=== PATIENT | male | born 1990 | race Caucasian/White ===

== ENCOUNTER 2023-07-08 11:10 | Emergency (ER) | payer BC, SELFPAY ==
[2023-07-08 11:12] VITALS: BP 139/91
[2023-07-08 13:16] LABS: % Basophils 0.9 % (0-2); % Eosinophils 1.3 % (0-6); % Immature Granulocytes 0.2 % (0-0.5); % Lymphocytes 23.3 % (20.5-51.1); % Monocytes 9.3 % (1.7-9.3); Absolute Basophils 0.1 10^3/uL (0-0.2); Absolute Eosinophils 0.1 10^3/uL (0-0.7); Absolute Lymphocytes 1.3 10^3/uL (1.2-3.4); Absolute Monocytes 0.5 10^3/uL (0.1-0.6); Absolute Neutrophils 3.6 10^3/uL (1.4-6.5); Hematocrit 44.8 % (39.0-52.0); Hemoglobin 15.4 g/dL (13.0-18.0); Mean Corp Hgb Conc. 34.4 g/dL (33.0-37.0); Mean Corpuscular Hgb 27.3 pg (27.0-31.0); Mean Corpuscular Volume 79.3 fL (80.0-94.0); Nucleated Red Blood Cells % 0 % (-); Red Blood Cell Count 5.65 10^6/uL (4.70-6.10); Red Cell Dist. Width 12.7 % (11.5-14.5); White Blood Cell Count 5.5 10^3/uL (4.8-10.8)
[2023-07-08 13:57] LABS: Mean Platelet Volume 12.2 fL (7.4-10.4); Platelet Count 37 10^3/uL (130-400)
--- NOTE | 2023-07-08 14:47 | ED.GENMED ---
History of Present Illness
General
Chief Complaint: Fall
Source: patient
Exam Limitations: none
Time Seen by Provider: 07/08/23 11:46
Nursing documentation reviewed up to this point in time: agreed with
Travel History
Have you had any contact with someone who has COVID-19?: No
Do you have any symptoms of coronavirus? Fever > 100 degrees, chills, cough, shortness of breath, sore throat, loss of taste or smell, muscle aches, or headache?: No
History of Present Illness
History of Present Illness:
32-year-old male with past medical history of diabetes, ITP presenting to the emergency department today with concerns of fall this morning in the bathtub hitting his right side has noticed bruising on his right lateral chest wall he is concerned
that he does have a history of low platelets. Has not been seeing his doctor in the over the past year or so. Denies hitting his head no neck pain no numbness weakness no change in bowel movements or urination.
Past History
Past History
ED Past Medical History: IDDM and Other (Celiac, chronically low platelets)
ED Past Surgical History: Other (wisdom teeth)
Social History
Tobacco: Non-smoker
Alcohol: Occasional
Drug: None
Personal: Single
Living: with family
Employment: Employed
Family History
Family History: Diabetes
Review of Systems
Review of Systems
Allergies reviewed?: Yes
All Other Systems: ROS reviewed and negative except as documented in HPI and ROS
Phy Exam
Physical Exam
Physical Exam:
GENERAL: Alert , in no apparent distress
EYE: pupils equal and reactive
NECK: Supple, no significant adenopathy.
ENT: o/p clr, mmm.
CARDIAC: Regular rate and rhythm .
LUNGS: Clear breath sounds bilaterally, no acute respiratory distress, no wheezes/rales/rhonchi
ABDOMEN: Soft, without focal tenderness, no r/g, no cvat
NEUROLOGICAL: Alert and oriented, no focal neuro deficits
SKIN: Warm and dry, skin intact.
MUSCULOSKELETAL: No edema, well perfused.
PSYCH: Normal and appropriate interaction.
Slight bruising to the right lower anterior rib region chest wall, no tenderness
Course
Orders/Labs/Results
Orders:
Orders
07/08/23 12:27
CR Ribs-right 3 Vw W/pa Chest* Urgent
Comment:
Reason For Exam: right lower rib pain after fall
07/08/23 13:02
CBC/With Diff [Complete Blood Count/With Diff] Urgent
07/08/23 14:43
Urinalysis Reflex To Culture Urgent
Date Specimen was Collected: 07/08/23
Time Specimen was Collected: 14:42
Urine Microscopic Reflex Cult Urgent
Abnormal Lab Results
07/08/23 07/08/23
13:02 14:43
MCV 79.3 L fL
(80.0-94.0)
Plt Count 37 L 10^3/uL
(130-400)
MPV 12.2 H fL
(7.4-10.4)
Urine Ketones Trace A
(Negative)
Leukocyte Esterase Rfl Trace A
(Negative)
Urine Bacteria (Reflex) Few A
(Negative)
Urine Glucose 2+ A
(Negative)
07/08/23 13:02
Vital Signs
Initial and Last Documented VS:
Initial Vital Signs
Temp Pulse Resp BP Pulse Ox
98.2 F 75 16 139/91 98
07/08/23 11:12 07/08/23 11:12 07/08/23 11:12 07/08/23 11:12 07/08/23 11:12
Last Documented Vital Signs
Temp Pulse Resp BP Pulse Ox
98.2 F 75 16 139/91 98
07/08/23 11:12 07/08/23 11:12 07/08/23 11:12 07/08/23 11:12 07/08/23 11:12
MDM/Problems Addressed
MDM/Problems Addressed:
32 omeprazole to the emergency department after a slip and fall in the bathtub today hitting his right lateral ribs. Denies significant injuries otherwise feels well no neck pain no head injury is only concerned due to history of low platelets.
Has been treated in the past Dr. Vega. Here generally well-appearing no abdominal pain vital signs normal x-ray without signs of acute abnormality. No effusion no lung abnormality. Platelet level is low at 37 which is slightly below his
baseline which is typically 50 according to his records. Urinalysis without signs of blood patient monitored here until at least 5 hours after the event with no progression of symptoms asymptomatic at this point. No pain to the abdomen and clear
lungs. 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 Return precautions given.
*Critical Care Note
Total Time (30-74mins, 75-104mins- exclusive of procedures): Not Applicable
ED Attending Note
-
Portions of this chart may have been created with voice recognition software.� Occasional wrong word or��sound alike� substitutions may have occurred due to the inherent limitations of voice recognition software.
Discharge Plan
Departure
Patient Disposition: Home (Routine Discharge)
Date of Disposition: 07/08/23
Time of Disposition: 15:12
Patient with high blood pressure during this ER visit?: No
Condition: Good
Covid-19: Not Applicable
Discharge Problem:
Fall, Thrombocytopenia
Instructions: Immune thrombocytopenia (ITP)
Prescriptions:
No Action
ondansetron 4 MG tablet,disintegrating
4 mg PO TIDPRN PRN (Reason: nausea/vomiting) Qty: 10 0RF
ondansetron 4 MG tablet,disintegrating
4 mg PO TIDPRN PRN (Reason: nausea/vomiting) Qty: 14 0RF
Referrals:
Maximino Frank, [Active] - Follow up in 5-7 days
Oh Sampson MD [Family Provider] -
Activity Restrictions/Additional Instructions:
You came to the emergency department today with concerns of a fall. You are found to have a low platelet count in the 30s please follow closely with your cloth printing inspector. No evidence of significant injury on your x-ray. Return to the emergency
department for any worsening, new or concerning symptoms.
Interventions
Interventions:
*ED COVID-19 Vaccine History Last Done: 07/08/23 11:12
ED-Musculoskeletal Assessment Last Done: 07/08/23 13:03
ED- Neurological Assessment Last Done: 07/08/23 13:02
[2023-07-08 14:58] LABS: Urine Albumin Negative (Neg - Trace); Urine Bilirubin Negative (Negative); Urine Character Clear (Clear); Urine Color Yellow; Urine Glucose 2+ (Negative); Urine Ketone Trace (Negative); Urine Leukocyte Trace (Negative); Urine Nitrite Negative (Negative); Urine Occult Blood Negative (Negative); Urine Urobilinogen Negative (Neg - 1+)
[2023-07-08 15:13] LABS: Urine Bacteria Few (Negative); Urine Red Blood Cell 0-2 /HPF (0-2); Urine Squamous Cell 0-2 /LPF (Few); Urine White Cell 0-2 /HPF (0-5)
== END 2023-07-08 15:25 | disposition home or self-care (01) ==
LOC: EMR 11:10
PROVIDERS: Physician Assistant; EMERGENCY PHYSICIAN Emergency Medicine; FAMILY PHYSICIAN Family Medicine
DX: D69.6 Thrombocytopenia, unspecified (principal); W18.2XXA Fall in (into) shower or empty bathtub, initial encounter; E11.9 Type 2 diabetes mellitus without complications
CPT/HCPCS: 99283; 71101; 81003; 81015; 85025

== ENCOUNTER 2025-04-05 09:39 | Emergency (ER) | payer BC, SELFPAY ==
[2025-04-05 09:42] VITALS: BP 127/93
--- NOTE | 2025-04-05 10:28 | ED.GENMED ---
History of Present Illness
General
Chief Complaint: Skin Problem
Source: patient
Time Seen by Provider: 04/05/25 10:22
History of Present Illness
History of Present Illness:
34-year-old male presents emergency room complaining of painful bruising to his left calf. Patient has a history of ITP. He is known to Dr. Frank. He takes Doptelet three times a week. No sprecific trauma he can recall. No numbness or
tingling in left foot.
Past History
Past History
ED Past Medical History: IDDM and Other (Celiac, chronically low platelets)
ED Past Surgical History: Other (wisdom teeth)
Social History
Tobacco: Non-smoker
Alcohol: Occasional
Drug: None
Personal: Single
Living: with family
Employment: Employed
Family History
Family History: Diabetes
Phy Exam
Physical Exam
Physical Exam:
General: Awake, Alert, Oriented X3. No acute distress.
Vitals: unremarkable
Head: Atraumatic
Eyes: Pupils equal, EOMI
Throat: Airway intact, no exudates
Lungs: Clear and equal b/l
Heart: Regular rate, no murmurs
Abd: Soft, Nontender, No pulsatile mass
Neuro: Nonfocal
Skin: Warm, dry, no rash
Extremities: pulses equal b/l, no edema. Ecchymosis noted left lower leg from mid calf down to the ankle. Compartments are quite soft. There is no specific hematoma noted.
Course
Orders/Labs/Results
Orders:
Orders
04/05/25 10:48
Basic Metabolic Panel Urgent
Complete Blood Count/With Diff Urgent
Abnormal Lab Results
04/05/25
10:48
MCH 26.6 L pg
(27.0-31.0)
MCHC 32.4 L g/dL
(33.0-37.0)
Plt Count 85 L 10^3/uL
(130-400)
Monocytes % 11.2 H %
(1.7-9.3)
Carbon Dioxide 31 H mmol/L
(22-30)
Glucose 120 H mg/dl
(70-99)
04/05/25 10:48
04/05/25 10:48
Vital Signs
Initial and Last Documented VS:
Initial Vital Signs
Temp Pulse Resp BP Pulse Ox
98.1 F 88 16 127/93 97
04/05/25 09:42 04/05/25 09:42 04/05/25 09:42 04/05/25 09:42 04/05/25 09:42
Last Documented Vital Signs
Temp Pulse Resp BP Pulse Ox
98.1 F 74 18 138/90 98
04/05/25 09:42 04/05/25 12:36 04/05/25 12:36 04/05/25 12:36 04/05/25 12:36
MDM/Problems Addressed
Differential Diagnosis Includes:
Exacerbation of thrombocytopenia from ITP, compartment syndrome, hematoma
MDM/Problems Addressed:
Physical exam does not reveal any large hematoma. The compartments are soft. Patient does not seem to have significant pain to suggest compartment syndrome. Cap refill is brisk and pulses are intact in the feet. Platelet count is 85,000.
Discussed with hematology. No change in management today though they encouraged the patient to contact the office tomorrow and they can take it from there.
*Pulse Oximetry
SaO2: 97
Oxygen Mode of Delivery: Room air
Patient hypoxic: no
*Critical Care Note
Total Time (30-74mins, 75-104mins- exclusive of procedures): Not Applicable
ED Attending Note
-
Portions of this chart may have been created with voice recognition software.� Occasional wrong word or��sound alike� substitutions may have occurred due to the inherent limitations of voice recognition software.
Discharge Plan
Departure
Patient Disposition: Home (Routine Discharge)
Date of Disposition: 04/05/25
Time of Disposition: 12:27
Patient with high blood pressure during this ER visit?: No
Condition: Good
Discharge Problem:
Thrombocytopenia, Superficial bruising of lower leg
Instructions: Contusion
Prescriptions:
No Action
ondansetron 4 MG tablet,disintegrating
4 mg PO TIDPRN PRN (Reason: nausea/vomiting) Qty: 10 0RF
ondansetron 4 MG tablet,disintegrating
4 mg PO TIDPRN PRN (Reason: nausea/vomiting) Qty: 14 0RF
Referrals:
UNKNOWN - PT DOES,NOT KNOW [Unknown Provider]
Activity Restrictions/Additional Instructions:
Call Dr. Acevedo's office in the morning.
Interventions
Interventions:
*Risk Screen - Suicide Last Done: 04/05/25 09:42
*Neglect/Abuse Screening Last Done: 04/05/25 09:42
*ED- Fall Risk Assessment Last Done: 04/05/25 10:39
*ED COVID-19 Vaccine History Last Done: 04/05/25 10:39
*ED Influenza Vaccine History Last Done: 04/05/25 10:39
*Nursing Disposition Last Done: 04/05/25 12:37
ED-Skin Assessment Last Done: 04/05/25 10:39
Discharge Date and Time
Discharge Date/Time: 04/05/25 12:37
Print Language: LAO
[2025-04-05 10:39] VITALS: BMI 25.5
[2025-04-05 10:59] LABS: Hematocrit 47.6 % (39.0-52.0); Hemoglobin 15.4 g/dL (13.0-18.0); Mean Corp Hgb Conc. 32.4 g/dL (33.0-37.0); Mean Corpuscular Volume 82.1 fL (80.0-94.0); Nucleated Red Blood Cells % 0 % (-); Platelet Count 85 10^3/uL (130-400); Red Cell Dist. Width 14.0 % (11.5-14.5)
[2025-04-05 11:16] LABS: Blood Urea Nitrogen 12 mg/dl (9-20); Calcium 9.2 mg/dl (8.4-10.2); Carbon Dioxide 31 mmol/L (22-30); Chloride 102 mmol/L (98-107); Estimated Creatinine Clearance 115 ml/min; Glucose 120 mg/dl (70-99); Potassium 4.0 mmol/L (3.5-5.1); Sodium 138 mmol/L (135-145); eGFR > 60.00
[2025-04-05 12:36] VITALS: BP 138/90
== END 2025-04-05 12:37 | disposition home or self-care (01) ==
LOC: EMR 09:39
PROVIDERS: EMERGENCY PHYSICIAN Emergency Medicine; FAMILY PHYSICIAN Family Medicine
DX: D69.6 Thrombocytopenia, unspecified (principal); S80.12XA Contusion of left lower leg, initial encounter; X58.XXXA Exposure to other specified factors, initial encounter; E11.9 Type 2 diabetes mellitus without complications; D69.3 Immune thrombocytopenic purpura; Z79.4 Long term (current) use of insulin
CPT/HCPCS: 99283; 80048; 85025